=== PATIENT | male | born 2000 | race Hispanic/Latino ===

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

== ENCOUNTER 2019-01-21 21:31 | Emergency (ER) | payer SELFPAY ==
--- OUTSIDE RECORDS SUMMARY | 2019-01-21 21:34 | XMS REPORT ---
:2000 [facility] Address [address] [place] [address] Dr. Field [address] [place] [id number] Care Team Providers Name Role Phone Unavailable Unavailable Unavailable Problems This patient has no known problems. Allergies, Adverse Reactions, Alerts This patient has no known allergies or adverse reactions. Medications This patient has no known medications.
--- NOTE | 2019-01-21 22:06 | EDPHYS ---
Physician Documentation [facility] Name: Guillermo Dobson Age: 18 yrs Sex: Male : 2000 Arrival Date: 01/21/2019 Time: 21:44 Bed 24 Private MD: ED Physician Manjeet Cesar HPI: 01/21 22:06 This 18 yrs old Male presents to ER via Unassigned with complaints of Nose jr8 Bleed, Dizziness. 22:06 The patient presents with a nose bleed, that is apparently anterior, from the right jr8 nare. Onset: The symptoms/episode began/occurred acutely, today. Modifying factors: The symptoms are alleviated by nothing. the symptoms are aggravated by nothing. Associated signs and symptoms: The patient has no apparent associated signs or symptoms. Severity of symptoms: At their worst the symptoms were mild in the emergency department the symptoms have resolved. The patient has not experienced similar symptoms in the past. The patient has not recently seen a physician. Stated that he had abrupt onset of nose bleed from right nare that has now resolved. No other complaints currently . Historical: - Allergies: 22:07 No Known Allergies; fc - Home Meds: 22:07 None [Active]; fc - PMHx: 22:07 None; fc - PSHx: 22:07 None; fc - Immunization history:: Last tetanus immunization: up to date. - Social history:: Smoking status: Patient/guardian denies using tobacco, Patient/guardian denies using alcohol, street drugs. - Ebola Screening: : Patient negative for fever greater than or equal to 101.5 degrees Fahrenheit, and additional compatible Ebola Virus Disease symptoms Patient denies exposure to infectious person Patient denies travel to an Ebola-affected area in the 21 days before illness onset. ROS: 22:06 Eyes: Negative for injury, pain, redness, and discharge, Neck: Negative for injury, jr8 pain, and swelling, Cardiovascular: Negative for chest pain, palpitations, and edema, Respiratory: Negative for shortness of breath, cough, wheezing, and pleuritic chest pain, Abdomen/GI: Negative for abdominal pain, nausea, vomiting, diarrhea, and constipation, Back: Negative for injury and pain, MS/Extremity: Negative for injury and deformity, Skin: Negative for injury, rash, and discoloration, Neuro: Negative for headache, weakness, numbness, tingling, and seizure. 22:06 ENT: Positive for nose bleed. Exam: 22:06 Eyes: Pupils equal round and reactive to light, extra-ocular motions intact. Lids and jr8 lashes normal. Conjunctiva and sclera are non-icteric and not injected. Cornea within normal limits. Periorbital areas with no swelling, redness, or edema. ENT: Nares patent. No nasal discharge, no septal abnormalities noted. Tympanic membranes are normal and external auditory canals are clear. Oropharynx with no redness, swelling, or masses, exudates, or evidence of obstruction, uvula midline. Mucous membranes moist. Neck: Trachea midline, no thyromegaly or masses palpated, and no cervical lymphadenopathy. Supple, full range of motion without nuchal rigidity, or vertebral point tenderness. No Meningismus. Cardiovascular: Regular rate and rhythm with a normal S1 and S2. No gallops, murmurs, or rubs. Normal PMI, no JVD. No pulse deficits. Respiratory: Lungs have equal breath sounds bilaterally, clear to auscultation and percussion. No rales, rhonchi or wheezes noted. No increased work of breathing, no retractions or nasal flaring. Abdomen/GI: Soft, non-tender, with normal bowel sounds. No distension or tympany. No guarding or rebound. No evidence of tenderness throughout. Back: No spinal tenderness. No costovertebral tenderness. Full range of motion. Skin: Warm, dry with normal turgor. Normal color with no rashes, no lesions, and no evidence of cellulitis. MS/ Extremity: Pulses equal, no cyanosis. Neurovascular intact. Full, normal range of motion. Neuro: Awake and alert, GCS 15, oriented to person, place, time, and situation. Cranial nerves II-XII grossly intact. Motor strength 5/5 in all extremities. Sensory grossly intact. Cerebellar exam normal. Normal gait. Vital Signs: 21:47 BP 127 / 84; Pulse 68; Resp 18; Temp 98.1(O); Pulse Ox 98% on R/A; Weight 72.57 kg (R); fc Height 5 ft. 7 in. (170.18 cm) (R); Pain 0/10; 21:47 Body Mass Index 25.06 (72.57 kg, 170.18 cm) fc MDM: 21:59 Patient medically screened. [facility] 22:05 Data reviewed: vital signs, nurses notes, and as a result, I will discharge patient. jr8 Data interpreted: Pulse oximetry: on room air is 100 %. Interpretation: normal. Counseling: I had a detailed discussion with the patient and/or guardian regarding: the historical points, exam findings, and any diagnostic results supporting the discharge/admit diagnosis, the need for outpatient follow up, a family practitioner, to return to the emergency department if symptoms worsen or persist or if there are any questions or concerns that arise at home. Administered Medications: No medications were administered Disposition: 01/21/19 22:06 Discharged to Home. Impression: Epistaxis. - Condition is Stable. - Discharge Instructions: Nosebleed, Adult. - Work release form, Medication Reconciliation Form, Thank You Letter, Antibiotic Education, Prescription Opioid Use form. - Follow up: Private Physician; When: As needed; Reason: Recheck today's complaints, Continuance of care, Re-evaluation by your physician. - Problem is new. - Symptoms have improved. Addendum: 01/23/2019 09:22 Co-signature as Attending Physician, Manjeet Cesar MD I agree with the assessment and c santana plan of care. Signatures: Manjeet eCsar MD MD cha Chretien, Felicia, RN RN Xavier Lewis PA PA jr8 Corrections: (The following items were deleted from the chart) 01/21 22:13 22:06 01/21/2019 22:06 Discharged to Home. Impression: Epistaxis. Condition is Stable. fc Forms are Medication Reconciliation Form, Thank You Letter, Antibiotic Education, Prescription Opioid Use. Follow up: Private Physician; When: As needed; Reason: Recheck today's complaints, Continuance of care, Re-evaluation by your physician. Problem is new. Symptoms have improved. jr8
--- NOTE | 2019-01-21 22:14 | ER ---
Nurse's Notes [facility] Name: Guillermo Dobson Age: 18 yrs Sex: Male : 2000 Arrival Date: 01/21/2019 Time: 21:44 Bed 24 Private MD: Diagnosis: Epistaxis Presentation: 01/21 21:47 Presenting complaint: Patient states: that he was at work and that he went to bathroom, while there he had a nose bleed that lasted 20 secs. States that he has been having a runny nose with clear drainage x 2 weeks. Transition of care: patient was not received from another setting of care. Onset of symptoms was January 21, 2019. Risk Assessment: Do you want to hurt yourself or someone else? Patient reports no desire to harm self or others. Initial Sepsis Screen: Does the patient meet any 2 criteria? No. Patient's initial sepsis screen is negative. Does the patient have a suspected source of infection? No. Patient's initial sepsis screen is negative. Care prior to arrival: None. 21:47 Method Of Arrival: Ambulatory 21:47 Acuity: ELBA 4 Triage Assessment: 21:47 General: Appears in no apparent distress. comfortable, slender, Behavior is calm, fc cooperative, appropriate for age. Pain: Denies pain. EENT: Nares are clear Reports had a nose bleed that lasted 20 secs and has stopped. Neuro: Level of Consciousness is awake, alert, obeys commands, Oriented to person, place, time, situation, Appropriate for age. Cardiovascular: No deficits noted. Respiratory: No deficits noted. GI: No deficits noted. : No deficits noted. Derm: Skin is pink, warm \T\ dry. Musculoskeletal: Circulation, motion, and sensation intact. Capillary refill < 3 seconds, Range of motion: intact in all extremities. Historical: - Allergies: 22:07 No Known Allergies; fc - Home Meds: 22:07 None [Active]; fc - PMHx: 22:07 None; fc - PSHx: 22:07 None; fc - Immunization history:: Last tetanus immunization: up to date. - Social history:: Smoking status: Patient/guardian denies using tobacco, Patient/guardian denies using alcohol, street drugs. - Ebola Screening: : Patient negative for fever greater than or equal to 101.5 degrees Fahrenheit, and additional compatible Ebola Virus Disease symptoms Patient denies exposure to infectious person Patient denies travel to an Ebola-affected area in the 21 days before illness onset. Screenin:47 Abuse screen: Denies threats or abuse. Nutritional screening: No deficits noted. fc Tuberculosis screening: No symptoms or risk factors identified. Fall Risk None identified. Assessment: 21:50 Reassessment: No changes from previously documented assessment. Patient and/or family fc updated on plan of care and expected duration. Pain level reassessed. Patient is alert, oriented x 3, equal unlabored respirations, skin warm/dry/pink. see triage assessment. 21:55 Reassessment: Xavier ROBLES in to see and examine pt. Vital Signs: 21:47 BP 127 / 84; Pulse 68; Resp 18; Temp 98.1(O); Pulse Ox 98% on R/A; Weight 72.57 kg (R); fc Height 5 ft. 7 in. (170.18 cm) (R); Pain 0/10; 21:47 Body Mass Index 25.06 (72.57 kg, 170.18 cm) ED Course: 21:44 Patient arrived in ED. es 21:47 Arm band placed on Patient placed in an exam room, on a stretcher. 21:47 Patient has correct armband on for positive identification. Bed in low position. Call fc light in reach. Pulse ox on. NIBP on. 21:47 No provider procedures requiring assistance completed. Patient did not have IV access fc during this emergency room visit. 21:51 Mansi Leonard RN is Primary Nurse. [facility] 21:58 Manjeet Cesar MD is Attending Physician. sil 22:02 Xavier Lewis [facility] 22:07 Triage completed. fc Administered Medications: No medications were administered Outcome: 22:06 Discharge ordered by . sly 22:12 Discharged to home ambulatory. 22:12 Condition: good 22:12 Discharge instructions given to patient, Instructed on discharge instructions, follow up and referral plans. Demonstrated understanding of instructions, follow-up care, Prescriptions given X none 22:13 Patient left the ED. fc Signatures: Manjeet Cesar MD MD cha Salyer, Edna es Chretien, Felicia, RN RN Xavier Lewis PA PA jr8 Acob, Cheryl, RN RN ca1
== END 2019-01-21 22:13 | disposition home or self-care (01) ==
LOC: ER 21:31
DX: R04.0 Epistaxis (principal)
CPT/HCPCS: 99283